=== PATIENT | female | born 1940 | race Caucasian/White ===

== ENCOUNTER 2016-08-05 22:06 | Emergency (ER) | payer MEDICARE ==
[~2016-08-05] VITALS: Ht 170.2 cm; Wt 75.0 kg
[2016-08-05 22:11] VITALS: BP 137/55; PULSE 90; RESP 18; O2SAT 100
--- NOTE | 2016-08-05 23:16 | ED.REPORT ---
HPI-Trauma Minor / Fall Date of Service Aug 05, 2016 ED Provider: Jordon Bray MD The patient is a 76 year old female with a history of dementia and hypertension who presents to the ED via EMS accompanied by her daughter after being found on the ground in her memory care unit just prior to arrival. She was next to a lamp which appeared to have been knocked over. The patient presents awake and alert with no complaints at this time. Per her daughter she has been off- balance lately. History is limited due to the patient's dementia. Nursing Notes Stated Complaint: GROUND LEVEL FALL Chief Complaint: Multiple Trauma/Fall Nursing Notes Reviewed: Yes Allergies: Coded Allergies: No Known Allergies (Unverified Allergy, Unknown, 08/17/14) General Time Seen by MD: 23:09 Chief Complaint Fall Hx Obtained From: EMS Unable to Obtain Hx: Patient condition, Mental status Arrived By: Ambulance Onset Occurred: Onset unknown (Found just prior to arrival) Symptom Duration: Since onset Caused by: Fall on ground Severity: Current: No pain currently Severity: Maximum: No pain Pertinent Negative: Relieved by nothing Context: Immunizations Unknown Recent Healthcare: No recent doctor visit Past Medical History Past Medical History Notes: DNR/DNI with limited interventions Past Medical History Dementia HTN Past Surgical History None Family History Son from cancer Smoking History Never Smoker Social History Alcohol Use: Denies alcohol use Drug Use: Denies drug use Other Social History: Good social support, , Lives in [facility]) Ambulatory Status Independent Review of Systems Unable to Obtain ROS Patient condition, Mental status (Dementia) Physical Exam Initial Vital Signs Vital Signs (First) Date Time Temp Pulse Resp B/P Pulse Ox O2 Delivery O2 Flow Rate FiO2 08/05/16 22:11 37.0 90 18 137/55 100 Room Air Initial VS: Reviewed, Vital signs normal Head / Eyes: Atraumatic, Normocephalic Respiratory: Breath sounds normal, Clear to auscultation, No respiratory distress Cardiovascular: Regular rate & rhythm, Heart sounds normal Abdomen / GI: Soft, Non-tender Skin: Warm, Dry, No cyanosis Neurologic: Alert, Nonfocal General/Constitutional: Awake, Alert Pleasantly demented - unable to participate in exam Neck: Atraumatic, Supple, Full range of motion, Non-tender ENT: Atraumatic, Airway patent Lower Extremity / Pelvis / MS: Neurologic intact, Vascular intact, Pelvis stable, Pelvis non-tender Left Hip: Positive: Tenderness present..., Negative: Leg externally rotated, Leg shortened Pain with movement of left hip Interpretation & Diagnostics URINE DIPSTICK: Bedside Urine Specific Steen * 1.025 Bedside Urine pH * 5 Bedside Urine Leukocyte Esterase * ++ Bedside Urine Nitrite * Negative Bedside Urine Protein * Trace Bedside Urine Glucose * Normal Bedside Urine Ketones * ++ Moderate Bedside Urine Urobilinogen * Normal Bedside Urine Occult Blood * Negative Urine to Lab * Yes Lab Results Interpretation Test 08/06/16 01:00 Urine Color Dark yellow (YELLOW) Urine Appearance Hazy (CLEAR,HAZY) Urine pH 5.5 (5.0-8.0) Urine Specific Steen 1.035 (1.003-1.035) Urine Protein Tracemg/dL (NEG,TRACE) Urine Glucose (UA) Negativemg/dL (NEGATIVE) Urine Ketones 40mg/dL (NEGATIVE) Urine Occult Blood Negative (NEGATIVE) Urine Nitrite Negative (NEGATIVE) Urine Bilirubin Negative (NEGATIVE) Urine Urobilinogen 1.0mg/dL (NORMAL) Urine Leukocyte Esterase Small (NEGATIVE) Urine RBC 0-2/hpf (0-2) Urine WBC >50/hpf (0-5) Urine Epithelial Cells Few/hpf (NONE-MOD) Urine Crystals Oxalic acid crystals (NONE Urine Bacteria Moderate/hpf (NONE-FEW) Urine Hyaline Casts None/lpf (NONE) Urine Granular Casts Occasional (NONE SEEN) Urine Waxy Casts None seen (NONE SEEN) Urine Red Blood Cell Casts None seen (NONE SEEN) Urine White Blood Cell Casts None seen (NONE SEEN) Urine Mucus Present (None Seen) Urine Trichomonas None seen (NONE SEEN) Urine Yeast None (NONE SEEN) Urinalysis Comment None Urine Culture Reflexed Indicated X-Ray Interpretation Xray Interpretation: No fracture seen X-Ray Ordered: Pelvis, Hip left Interpretation / Wet Read by: Wet read ED physician Re-Eval/Medical Decision Med Decision/Clinical Course [id number] female with an unwitnessed fall at the [facility]. Physical examination reveals no significant evidence of trauma. She does have a little bit of left hip tenderness so x-ray examination was performed which is negative. She is being discharged back to her [facility]. Follow up as needed. Source of Hx: Old records Re-Evaluation/Progress #1: Time of Eval: 00:11 Patient Status: Condition improved Re-Evaluation/Progress Note: Discussed with patient and her daughter x-ray results and plan for urine dip. Re-Evaluation/Progress #2: Time of Eval: 01:25 Patient Status: Condition improved Re-Evaluation/Progress Note: Discussed with patient and her daughter x-ray and urine dip results, diagnosis, and plan for discharge. Follow-up and return to the ER instructions given. Patient and daughter agree with plan for care and all questions were addressed. Counseled Regarding: Diagnosis, Need for follow-up, When/why to return to ED Discharge & Departure Impression: Primary Impression: Fall from ground level Additional Impressions: Contusion, hip Encounter type: initial encounter Laterality: left Qualified Code: S70.02XA - Contusion of left hip, initial encounter History of dementia Disposition: Home Discharge Condition All VS Reviewed: Yes Condition: Improved Patient Instructions: Fall Prevention for Older Adults (ED) Additional Instructions: Thank you for entrusting us with your care. No significant trauma is found on physical examination. Your x-ray did not indicate a fracture and you do not appear to have a urinary tract infection. Call your primary care provider tomorrow for a follow-up appointment. Return to the ER with any new or worsening symptoms. Referrals: Kinsey Saldivar (PCP) Scribe Attestation Portions of this note were transcribed by Magui Mckeon. I, Dr. Bray, personally performed the history, physical exam, and medical decision-making; I reviewed and confirmed the accuracy of the information in the transcribed note. Signed by: Amando Cartwright, 08/06/2016, 01:30 copies to: Kinsey Saldivar Howard L MD Aug 05, 2016 23:16 MAGUI MCKEON Aug 05, 2016 23:23
[2016-08-06 01:35] LABS: APPEARANCE,URINE HAZY (CLEAR,HAZY); COLOR,URINE DARK YELLOW (YELLOW); OCCULT BLOOD,URINE NEGATIVE (NEGATIVE); PH,URINE 5.5 (5.0-8.0)
[2016-08-06 01:41] VITALS: BP 128/58; PULSE 87; RESP 21; O2SAT 98
--- NOTE | 2016-08-06 08:19 | DRSVH ---
PROCEDURE: X-RAY PELVIS W/LAT HIP (LT) ([id number]) INDICATIONS: fall, left hip pain TECHNIQUE: AP pelvis and lateral view of the left hip acquired. COMPARISON: None. FINDINGS: Bones: No acute fractures or dislocations. Normal left hip alignment. Degenerative changes in both hi ps and the lower lumbar spine. Osteopenia. Soft tissues: Overlying postoperative changes are noted. No suspicious soft tissue densities. IMPRESSION: No acute fractures. If there is clinical concern for fracture recommend a noncontrast MRI . Dictated by: Goldy Austin M.D. on 08/06/2016 at 8:10 Approved by: Goldy Austin M.D. on 08/06/2016 at 8:12
== END 2016-08-06 01:41 | disposition home or self-care (01) ==
LOC: SED 22:13
DX: S70.02XA Contusion of left hip, initial encounter (principal); W18.39XA Other fall on same level, initial encounter; Y93.9 Activity, unspecified; Y92.129 Unspecified place in nursing home as the place of occurrence of the external cause; Y99.8 Other external cause status; I10 Essential (primary) hypertension; F03.90 Unspecified dementia, unspecified severity, without behavioral disturbance, psychotic disturbance, mood disturbance, and anxiety; Z66 Do not resuscitate